=== PATIENT | female | born 1945 | race Caucasian/White ===

== ENCOUNTER 2017-10-29 11:19 | Emergency (ER) | payer OTHER ==
[~2017-10-29] VITALS: Ht 160 cm; Wt 83.9 kg
[2017-10-29] MEDS ORDERED: SODIUM CHLORIDE 0.9% 1000ML 1,000 ML IV STA (11:32)
[2017-10-29 11:48] LABS: BASOPHILS # (AUTO) 0.1 (0.0-0.1); BASOPHILS % 0.5 % (0.0-1.0); EOSINOPHILS # (AUTO) 1.1 (0.0-0.4); EOSINOPHILS % 8.8 % (0.0-6.0); HEMATOCRIT 39.3 % (34.2-44.1); HEMOGLOBIN 13.7 g/dL (12.0-16.0); LYMPHOCYTES % 23.9 % (18.0-39.1); MEAN CORPUSCULAR HEMOGLOBIN 29.1 pg (28-32); MEAN CORPUSCULAR HGB CONC 34.9 g/dL (31-35); MEAN CORPUSCULAR VOLUME 83.6 fL (81-99); MONOCYTES % 8.3 % (4.4-11.3); NEUTROPHILS # (AUTO) 7.3 (2.1-6.9); NEUTROPHILS % 57.9 % (38.7-80.0); PLATELET COUNT 268 x10e3/uL (140-360); RED CELL DISTRIBUTION WIDTH 13.1 % (11.7-14.4)
[2017-10-29 11:57] LABS: PARTIAL THROMBOPLASTIN TIME 25.8 seconds (23.8-35.5); PROTHROMBIN TIME 12.4 seconds (11.9-14.5)
[2017-10-29 12:02] LABS: CREATINE KINASE 54 IU/L (29-168)
[2017-10-29 12:04] LABS: ALBUMIN 3.6 g/dL (3.5-5.0); ANION GAP 12.8 mmol/L (8-16); CALCIUM 9.6 mg/dL (8.4-10.2); POTASSIUM 3.8 mmol/L (3.5-5.1)
--- NOTE | 2017-10-29 12:16 | Diagnostic Imaging Report ---
History:Dizziness, high blood pressure Comparison studies:None Technique: Axial images were obtained from the skull base to the vertex. Coronal and sagittal images reconstructed from the axial data. Intravenous contrast: None Findings: Scalp/skull: No abnormalities. Extra-axial spaces: No masses. No fluid collections. Brain sulci: Age-appropriate. Ventricles: Age-appropriate.. No hydrocephalus. Parenchyma: No abnormal densities. No masses, hemorrhage, acute or chronic cortical vascular insults. Sellar/suprasellar region: No abnormalities. Craniocervical junction: Patent foramen magnum. No Chiari one malformation. Incidental findings: Atherosclerotic calcifications in the carotid siphons . Impression: No acute abnormalities. Signed by: DR Leno Forbes M.D. on 10/29/2017 12:13 PM
--- NOTE | 2017-10-29 12:22 | Diagnostic Imaging Report ---
PROCEDURE: CHEST SINGLE (PORTABLE) COMPARISON: None. INDICATIONS: DIZZY FINDINGS: LUNGS: No consolidations or edema. PLEURA: There is slight elevation of the right hemidiaphragm of indeterminate significance. HEART \T\ MEDIASTINUM: The heart is within normal size-limits. BONES \T\ SOFT TISSUES: No acute findings. Multiple clips present in the left axilla. [place] device overlying the left humeral head. AC joint degenerative spurring. CONCLUSION: No acute thoracic abnormality. Devon Romero D.O. Dictated by: Devon Romero D.O. on 10/29/2017 at 12:23 Electronically approved by: Devon Romero D.O. on 10/29/2017 at 12:23
[2017-10-29 14:26] LABS: CLARITY,URINE CLEAR (CLEAR); COLOR,URINE YELLOW (YELLOW); LEUKOCYTE ESTERASE ,URINE TRACE (NEGATIVE); NITRITE,URINE NEGATIVE (NEGATIVE); PROTEIN,URINE DIPSTICK NEGATIVE (NEGATIVE)
[2017-10-29 14:27] LABS: BILIRUBIN,URINE NEGATIVE (NEGATIVE); KETONES,URINE NEGATIVE (NEGATIVE); URINE UROBILINOGEN 0.2 mg/dL (0.2 - 1)
[2017-10-29 14:40] LABS: EPITHELIAL CELLS,URINE FEW /LPF; MUCUS,URINE FEW (RARE)
== END 2017-10-29 15:25 | disposition home or self-care (01) ==
LOC: ER 11:19
DX: R53.83 Other fatigue (principal); I10 Essential (primary) hypertension; E11.9 Type 2 diabetes mellitus without complications; I49.3 Ventricular premature depolarization; Z85.3 Personal history of malignant neoplasm of breast
CPT/HCPCS: 36415; 70450; 71045; 80053; 81001; 82550; 82553; 83735; 84484; 85025; 85610; 85730; 87086; 93005; 99284; J7030

== ENCOUNTER 2019-12-08 06:46 | Inpatient (IN) | payer MEDICARE, OTHER ==
--- NOTE | 2019-12-05 16:55 | Diagnostic Imaging Report ---
EXAM: CHEST 2 VIEWS DATE: 12/05/2019 4:23 PM INDICATION: Colon cancer COMPARISON: None FINDINGS: The trachea is midline. The lungs are symmetrically expanded without evidence for large focal consolidation, pneumothorax, or significant pleural effusion. The cardiomediastinal silhouette and pulmonary vasculature are within normal limits. Mild atherosclerotic calcifications noted within the aortic arch. No acute osseous abnormality is identified. Multiple surgical clips noted projecting over the bilateral axilla. The surrounding soft tissues are unremarkable. IMPRESSION: No acute cardiopulmonary process identified. Signed by: Dr. Oscar Sousa MD on 12/05/2019 4:52 PM
[2019-12-05 17:04] LABS: BASOPHILS # (AUTO) 0.1 (0.0-0.1); BASOPHILS % 0.9 % (0.0-1.0); EOSINOPHILS # (AUTO) 0.1 (0.0-0.4); EOSINOPHILS % 1.7 % (0.0-6.0); HEMATOCRIT 33.3 % (34.2-44.1); HEMOGLOBIN 9.9 g/dL (12.0-16.0); LYMPHOCYTES # (AUTO) 1.7 (1.0-3.2); LYMPHOCYTES % 21.6 % (18.0-39.1); MEAN CORPUSCULAR HEMOGLOBIN 23.2 pg (28-32); MEAN CORPUSCULAR HGB CONC 29.7 g/dL (31-35); MONOCYTES # (AUTO) 0.5 (0.2-0.8); NEUTROPHILS # (AUTO) 5.6 (2.1-6.9); NEUTROPHILS % 69.7 % (38.7-80.0); PLATELET COUNT 241 x10e3/uL (140-360); RED BLOOD COUNT 4.27 x10e6/uL (3.6-5.1)
[2019-12-05 17:24] LABS: ALANINE AMINOTRANSFERASE 10 IU/L (0-55); ALBUMIN 3.5 g/dL (3.5-5.0); ALBUMIN/GLOBULIN RATIO 1.2 (0.8-2.0); ALKALINE PHOSPHATASE 63 IU/L (40-150); ANION GAP 14.1 mmol/L (8-16); BLOOD UREA NITROGEN 11 mg/dL (7-26); BUN/CREATININE RATIO 13 (6-25); CARBON DIOXIDE 24 mmol/L (22-29); CHLORIDE 105 mmol/L (98-107); CREATININE, SERUM 0.86 mg/dL (0.57-1.11); EST GLOMERULAR FILTRATION RATE > 60 ML/MIN (60-); GLUCOSE 122 mg/dL (74-118); POTASSIUM 4.1 mmol/L (3.5-5.1); SODIUM 139 mmol/L (136-145)
[~2019-12-08] VITALS: Ht 160 cm; Wt 79.8 kg
[~2019-12-08 06:46] MED LIST: ARIMIDEX1 MG PO; ATENOLOL50 MG PO; CRESTOR10 MG PO; JANUVIA100 MG PO; METFORMIN HCL500 M2 PO
[2019-12-08] MEDS ORDERED: CEFAZOLIN SOD 1 GM/NS 50ML 100 ML IV ONE (08:45)
[2019-12-08 08:53] LABS: CLARITY,URINE CLEAR (CLEAR); COLOR,URINE YELLOW (YELLOW); KETONES,URINE NEGATIVE (NEGATIVE); LEUKOCYTE ESTERASE ,URINE NEGATIVE (NEGATIVE); NITRITE,URINE NEGATIVE (NEGATIVE); PROTEIN,URINE DIPSTICK 1+ (NEGATIVE); URINE UROBILINOGEN 0.2 mg/dL (0.2 - 1)
[2019-12-08 08:54] LABS: BILIRUBIN,URINE SMALL (NEGATIVE)
[2019-12-08 09:28] LABS: BACTERIA,URINE MANY /HPF; EPITHELIAL CELLS,URINE MANY /LPF; RBC,URINE 0-5 /HPF (0-5); WBC,URINE (MAN) 21-50 /HPF (0-5)
[2019-12-08] MEDS ORDERED: BUPIVACAINE LIPOSOME/PF 266 MG/20 ML IJ ONE (10:05)
[2019-12-08] MEDS ORDERED: SODIUM CHLORIDE 0.9% 100 ML ONE (10:29)
[2019-12-08] MEDS ORDERED: SUGAMMADEX SODIUM 200 MG/2 ML VIAL IV ONE (11:39)
[2019-12-08] MEDS ORDERED: PANTOPRAZOLE 40 MG 10ML VIAL IV SCH (12:30)
[2019-12-08] MEDS ORDERED: HYDROMORPHONE 0.2MG/ML-SOD CHL 30ML PCA SYRINGE IV PRN (12:30)
[2019-12-08] MEDS ORDERED: NALOXONE HCL INJ 0.4 MG/ML AMP IV PRN ×2 (12:30→14:00)
[2019-12-08] MEDS ORDERED: SODIUM CHLORIDE 0.9% 250ML IRRIG IR SCH (12:30)
[2019-12-08] MEDS ORDERED: SODIUM CHLORIDE 0.9% 1000ML 1,000 ML IV SCH (12:30)
[2019-12-08] MEDS ORDERED: HYDROMORPHONE 1MG/1ML INJ ONE (12:38)
[2019-12-08] MEDS ORDERED: PROMETHAZINE HCL (IM) 25 MG/ML VIAL ONE (12:46)
--- NOTE | 2019-12-08 13:35 | Operative Report ---
DATE OF PROCEDURE: 12/08/2019 SURGEON: Jhony Cheema MD PREOPERATIVE DIAGNOSES: Obstructing transverse colon carcinoma, anemia, history of breast cancer, hypertension, and diabetes. POSTOPERATIVE DIAGNOSES: Obstructing transverse colon carcinoma, anemia, history of breast cancer, hypertension, and diabetes. PROCEDURES PERFORMED: Exploratory laparotomy, extended right hemicolectomy, right oophorectomy. ASSISTANTS: 1. Gustabo Cheema MD. 2. ROSELYN Paul. ESTIMATED BLOOD LOSS: Minimal. DRAINS: None. COMPLICATIONS: None. INDICATION AND FINDINGS: This is a pleasant 74-year-old female, who was diagnosed with colon cancer because of anemia. Colonoscopy revealed a lesion in the area of the transverse colon that was tattooed. Preoperatively, CT scan revealed no lesions. The COVID test was negative. INTRAOPERATIVE FINDINGS: A large bulky lesion about 6 cm located in the proximal transverse colon, past the distal to the hepatic flexure. I am almost what appeared to be pocketing of the serosa of the colonic wall. There was no evidence of liver mets and there was some nodes that appeared to be reactive from the previous tattooing. There was a 2 cm right ovarian mass and felt different and firmer than the atrophic right ovary and that was excised. A stapled [id number] functional end-to-end to an anastomosis was then performed. DESCRIPTION OF PROCEDURE: With the patient lying on the operative table in the supine position, after administration of general anesthesia, she was given prophylactic antibiotics. The patient was placed in the candy-cane and a rigid procto was performed up to 25 cm. There was no good bowel prep. There was some fluid stool that was removed. After we did that, she was prepped and draped for exploratory laparotomy. The abdomen was entered via midline incision. This patient had a previous trans flap with mesh placement, and we entered the abdominal cavity via transection of the mesh that was the abdominal wall. After we entered the abdominal cavity. The findings noted above. We began by mobilizing the right colon along the gutter white line of Toldt. We transected the small bowel about 6 inches for the terminal ileum, then continued the mobilization of the colon from the white line of Toldt, the hepatic flexure down to the distal part of the transverse colon. We then mobilized the hepatic flexure, detached the omentum from the stomach and later attached to the colon and then selected the point of transection of the distal transverse colon to the left of the midline. We went ahead and then transected the colon with the WU stapler there also, as had been done with the small bowel. Then, we took down the blood supply to the colon with an EnSeal instrument and the larger vessels were tied off doubly with 0 silk, after we detached the specimen there, we went ahead and included some small nodes that I think were reactive, and then we went ahead and performed her right oophorectomy. We tied off the pedicle with 0 silk and the was transected with the EnSeal instrument and sent to Pathology for evaluation. A xtat-os-jqau anastomosis was then performed between the distal small bowel and the transverse colon, firing the WU #75 stapler to anastomose those two segments proximally and distally. Small bowel to the distal transverse colon and we examined the staple line. There was no bleeding. Then, we closed the rent between the distal end of the colon and small bowel with the TA-60 stapler. We reinforced the staple line with 3-0 silk. We closed the rent in the mesentery with 3-0 Vicryl. Sponge and instrument counts were pronounced correct three times and then we copiously irrigated the abdominal cavity. It was tender, there was no bleeding. No evidence of any bowel injury which we then find any and then we closed the wound after we suctioned all the fluid out in two layers. We used a running 0 PDS to close the fascia in the midline, which basically consisted of the mesh with ingrown tissue. We gave her then a local block and field block with 20 mL of Exparel mixed with 20 mL of saline, a total of 40. The subcu tissues were approximated using 2-0 plain catgut and the skin was closed using a combination of cindy and silk. Sterile dressing was applied. The patient tolerated the procedure well, and was taken to recovery room stable condition. MD JACKIE Pelayo/FABIO /[id number]
[2019-12-08] MEDS: SODIUM CHLORIDE 0.9% IRRIG 3,000 ML BAG IR SCH ×4 (14:00→23:46)
[2019-12-08] MEDS ORDERED: HYDROMORPHONE 0.2MG/ML-SOD CHL 30ML PCA SYRINGE IV ONE (14:39)
[2019-12-08] MEDS: HYDROMORPHONE 0.2MG/ML-SOD CHL 30ML PCA SYRINGE IV PRN (14:41)
[2019-12-08 15:35] VITALS: BP 133/50
[2019-12-08 15:45] VITALS: BP 133/50
[2019-12-08 15:57] VITALS: BP 133/50
[2019-12-08] MEDS: PANTOPRAZOLE 40 MG 10ML VIAL IV SCH (16:23)
[2019-12-08] MEDS: SODIUM CHLORIDE 0.9% 1000ML 1,000 ML IV SCH ×2 (16:23→23:46)
[2019-12-08] MEDS: METOPROLOL TARTRATE INJ 1 MG/ML VIAL IV SCH (16:23)
[2019-12-08] MEDS: CEFAZOLIN SOD 1 GM/NS 50ML 50 ML IV SCH ×2 (16:23→22:04)
[2019-12-08] MEDS ORDERED: ATENOLOL 50 MG TAB PO SCH (17:00)
[2019-12-08] MEDS ORDERED: CEFAZOLIN SOD 1 GM/NS 50ML 50 ML IV SCH (18:00)
[2019-12-08] MEDS ORDERED: CEFAZOLIN SOD 1 GM VIAL IV SCH (18:00)
[2019-12-08 20:00] VITALS: BP 167/65
[2019-12-08] MEDS ORDERED: FENTANYL CITRATE/PF 100MCG/2 ML INJ ONE (20:19)
[2019-12-08 21:10] VITALS: BP 167/65
[2019-12-08] MEDS ORDERED: DEXAMETHASONE SOD PHOS INJ 4 MG/ML VIAL ONE (21:20)
[2019-12-08] MEDS ORDERED: EPHEDRINE SULFATE INJ 50 MG/ML VIAL ONE (21:20)
[2019-12-08] MEDS ORDERED: ACETAMINOPHEN 1000 MG/100 ML IV ONE (21:20)
[2019-12-08] MEDS ORDERED: LIDOCAINE HCL 2% LOCAL INJ 5 ML SDV VIAL INJ ONE (21:20)
[2019-12-08] MEDS ORDERED: HYDRALAZINE HCL 20 MG/ML VIAL ONE (21:20)
[2019-12-08] MEDS ORDERED: PHENYLEPHRINE HCL 1% 10 MG/ML VIAL ONE (21:20)
[2019-12-08] MEDS ORDERED: ROCURONIUM BROMIDE 10 MG/ML 5ML VIAL IV ONE (21:20)
[2019-12-08] MEDS ORDERED: SEVOFLURANE INHAL SOLN 250 ML PEN BTL ONE (21:20)
[2019-12-08] MEDS ORDERED: ONDANSETRON HCL INJ 2MG/ML 2ML 2 MG/ML VIAL ONE (21:20)
[2019-12-08] MEDS ORDERED: ETOMIDATE 2 MG/ML 10 ML INJ IV ONE (21:20)
[2019-12-09] VITALS (7 sets, daily range): BP systolic 137–168; BP diastolic 51–67
[2019-12-09] MEDS: CEFAZOLIN SOD 1 GM/NS 50ML 50 ML IV SCH ×4 (04:49→22:32)
[2019-12-09 05:47] LABS: ANION GAP 14.1 mmol/L (8-16); CALCIUM 7.9 mg/dL (8.4-10.2); CREATININE, SERUM 0.96 mg/dL (0.57-1.11); POTASSIUM 4.1 mmol/L (3.5-5.1)
[2019-12-09] MEDS: SODIUM CHLORIDE 0.9% IRRIG 3,000 ML BAG IR SCH ×5 (06:07→22:32)
[2019-12-09 08:18] LABS: BASOPHILS % 0.2 % (0.0-1.0); EOSINOPHILS # (AUTO) 0.1 (0.0-0.4); EOSINOPHILS % 0.7 % (0.0-6.0); HEMOGLOBIN 8.8 g/dL (12.0-16.0); LYMPHOCYTES # (AUTO) 0.7 (1.0-3.2); LYMPHOCYTES % 3.5 % (18.0-39.1); MEAN CORPUSCULAR HEMOGLOBIN 23.9 pg (28-32); MEAN CORPUSCULAR HGB CONC 30.3 g/dL (31-35); MEAN CORPUSCULAR VOLUME 78.8 fL (81-99); MONOCYTES # (AUTO) 1.1 (0.2-0.8); MONOCYTES % 5.3 % (4.4-11.3); NEUTROPHILS # (AUTO) 18.2 (2.1-6.9); NEUTROPHILS % 89.6 % (38.7-80.0); PLATELET COUNT 240 x10e3/uL (140-360); RED BLOOD COUNT 3.68 x10e6/uL (3.6-5.1)
[2019-12-09] MEDS: SODIUM CHLORIDE 0.9% 1000ML 1,000 ML IV SCH ×2 (08:39→16:52)
[2019-12-09] MEDS: METOPROLOL TARTRATE INJ 1 MG/ML VIAL IV SCH (08:42)
[2019-12-09] MEDS: PANTOPRAZOLE 40 MG 10ML VIAL IV SCH (08:43)
[2019-12-09 08:54] LABS: ANISOCYTOSIS MODERATE; OVALOCYTES FEW
[2019-12-09 08:55] LABS: HYPOCHROMASIA MODERATE
[2019-12-09 08:56] LABS: MICROCYTOSIS MODERATE; POLYCHROMASIA FEW; RBC MORPHOLOGY COMMENT ABNORMAL
[2019-12-09 08:57] LABS: PLATELET ESTIMATE ADEQUATE
[2019-12-09 08:58] LABS: PLATELET MORPHOLOGY COMMENT FEW LARGE
[2019-12-09] MEDS ORDERED: METOPROLOL TARTRATE INJ 1 MG/ML VIAL IV SCH (09:00)
[2019-12-09] MEDS ORDERED: LIDOCAINE 1% W/EPINEPHRINE 20 ML VIAL ONE (10:29)
--- NOTE | 2019-12-09 12:19 | Operative Report ---
DATE OF PROCEDURE: 12/09/2019 SURGEON: Jhony Cheema MD PREOPERATIVE DIAGNOSIS: Need central angioaccess. POSTOPERATIVE DIAGNOSIS: Need central angioaccess. PROCEDURE PERFORMED: Insertion of left subclavian central line triple lumen. ANESTHESIA: Local 1% Xylocaine with epinephrine. ESTIMATED BLOOD LOSS: Less than 5 mL. DRAINS: None. COMPLICATIONS: None. INDICATION AND FINDINGS: The patient is a 74-year-old female, status post bilateral modified radical mastectomy for breast cancer, who underwent yesterday exploratory laparotomy, extended right hemicolectomy for an obstructing colon carcinoma, who now needs central angioaccess because of poor peripheral IV access and the fact that she is status post bilateral mastectomy and will be required intravenous fluids for several days. DESCRIPTION OF PROCEDURE: With the patient lying on the operative table in the supine position after administration of local with 1% Xylocaine with epinephrine and a self-administration of Dilaudid COMPUTER GAME DESIGNER, she was prepped and draped for placement of central line via the left subclavian region. The left subclavian vein was percutaneously punctured, obtaining good blood flow return. The guidewire was then introduced, the tract dilated, and then the dilator removed. Then, the central line triple lumen was threaded into the right side of the chest using the Seldinger technique. There was good blood flow return. The line was then secured with three stitches to the pectoral skin and sterile dressing was applied. The patient tolerated the procedure well and was taken to recovery room in stable condition. MD JACKIE Pelayo/MODL /[id number]
--- NOTE | 2019-12-09 13:26 | Diagnostic Imaging Report ---
EXAMINATION: CHEST SINGLE (PORTABLE) INDICATION: Line placement COMPARISON: Chest radiograph 12/05/2019 FINDINGS: LINES/TUBES:Interval placement of left subclavian central venous catheter terminating at the superior cavoatrial junction. Enteric tube terminates in the stomach. LUNGS:The lungs are moderately inflated. Mild bibasilar subsegmental atelectasis. No focal consolidation or pulmonary edema PLEURA:No pleural effusion or pneumothorax. MEDIASTINUM:The cardiomediastinal silhouette appears normal in size and shape. BONES/SOFT TISSUES:No acute osseous injury. Surgical clips in both axilla. ABDOMEN:No free air under the diaphragm. Status post cholecystectomy. IMPRESSION: Left subclavian central venous catheter terminates at the superior cavoatrial junction. Signed by: Roberto Boo MD on 12/09/2019 1:22 PM
[2019-12-09] MEDS: INSULIN REGULAR, HUMAN 100 UNIT/1 ML 3ML VIAL SQ SCH ×2 (13:37→17:43)
--- NOTE | 2019-12-09 14:03 | NUR ---
received report from [facility] nurse, Netta. Pt being transferred from room 198 to room 106.
--- NOTE | 2019-12-09 14:21 | NUR ---
Dr Ramila Martell has been in with patient. He has placed a left subclavian central line with no complications noted. Peripheral iv has been removed with cannula intact, pressure held, bandaged, and no bleeding noted. Have notified Dr Randal Cheema that the urine output is 20- 25 cc/hr and the BP is elevated 160 systolic. He has ordered to continue the IVF and resume pt's home med atenolol. No other orders at this time.
--- NOTE | 2019-12-09 14:34 | NUR ---
pt arrived to room 106. [address], NG tube to right nare intact, IV patent. no signs of distress.
[2019-12-09] MEDS: ATENOLOL 50 MG TAB PO SCH (16:40)
[2019-12-09] MEDS: HYDROMORPHONE 0.2MG/ML-SOD CHL 30ML PCA SYRINGE IV PRN (20:43)
[2019-12-10] VITALS (8 sets, daily range): BP systolic 160–183; BP diastolic 52–68
[2019-12-10] MEDS: INSULIN REGULAR, HUMAN 100 UNIT/1 ML 3ML VIAL SQ SCH ×4 (01:14→18:00)
[2019-12-10] MEDS: SODIUM CHLORIDE 0.9% 1000ML 1,000 ML IV SCH ×3 (01:14→18:00)
[2019-12-10] MEDS: SODIUM CHLORIDE 0.9% IRRIG 3,000 ML BAG IR SCH ×6 (01:48→22:00)
[2019-12-10] MEDS: CEFAZOLIN SOD 1 GM/NS 50ML 50 ML IV SCH ×4 (03:43→22:08)
--- NOTE | 2019-12-10 04:50 | NUR ---
LONGORIA CARE PROVIDED VIA CASTILE SOAP WIPES. CENTRAL LINE CARE PROVIDED. DAILY CHG BATH GIVEN. EDUCATION REGARDING CENTRAL LINE CARE PROVIDED. TOLERATED PROCEDURES WELL.
[2019-12-10 05:34] LABS: BASOPHILS % 0.1 % (0.0-1.0); HEMATOCRIT 24.9 % (34.2-44.1); HEMOGLOBIN 7.3 g/dL (12.0-16.0); MEAN CORPUSCULAR HEMOGLOBIN 23.7 pg (28-32); MEAN CORPUSCULAR HGB CONC 29.3 g/dL (31-35); MEAN CORPUSCULAR VOLUME 80.8 fL (81-99); MONOCYTES # (AUTO) 0.9 (0.2-0.8); MONOCYTES % 6.2 % (4.4-11.3); NEUTROPHILS # (AUTO) 12.1 (2.1-6.9); NEUTROPHILS % 85.9 % (38.7-80.0); PLATELET COUNT 201 x10e3/uL (140-360); RED BLOOD COUNT 3.08 x10e6/uL (3.6-5.1)
[2019-12-10 06:02] LABS: ANION GAP 6.9 mmol/L (8-16); BLOOD UREA NITROGEN 18 mg/dL (7-26); BUN/CREATININE RATIO 24 (6-25); CALCIUM 7.8 mg/dL (8.4-10.2); CARBON DIOXIDE 26 mmol/L (22-29); CHLORIDE 113 mmol/L (98-107); CREATININE, SERUM 0.74 mg/dL (0.57-1.11); EST GLOMERULAR FILTRATION RATE > 60 ML/MIN (60-); GLUCOSE 143 mg/dL (74-118); POTASSIUM 3.9 mmol/L (3.5-5.1); SODIUM 142 mmol/L (136-145)
--- NOTE | 2019-12-10 07:00 | NUR ---
BEDSIDE SHIFT REPORT RECEIVED PT IN STABLE CONDITION, DENIES PAIN AT THIS TIME, DSG TO ABDOMEN C/D/I, LONGORIA TO BSD WITH YELLOW URINE NOTED, UPDATED ON POC VOICED UNDERSTANDING, CALL LIGHT IN REACH WILL CONTINUE TO MONITOR
--- NOTE | 2019-12-10 07:24 | NUR ---
REPORT GIVEN TO [facility] NURSE. RESTING IN BED. AAOX3. NO SIGNS OF IV INFILTRATION. BED LOCKED AND IN LOW POSITION. CALL LIGHT WITHIN REACH. ENTRY LEVEL LAB TECHNICIAN BUTTON WITHIN REACH.
[2019-12-10 08:11] LABS: RBC MORPHOLOGY COMMENT ABNORMAL
[2019-12-10 08:12] LABS: ANISOCYTOSIS MODERATE; HYPOCHROMASIA MODERATE; OVALOCYTES FEW
[2019-12-10 08:13] LABS: MICROCYTOSIS MODERATE; PLATELET ESTIMATE ADEQUATE; PLATELET MORPHOLOGY COMMENT FEW LARGE
[2019-12-10] MEDS: ATENOLOL 50 MG TAB PO SCH ×2 (09:46→16:42)
[2019-12-10] MEDS: PANTOPRAZOLE 40 MG 10ML VIAL IV SCH (09:53)
--- NOTE | 2019-12-10 13:10 | NUR ---
UP TO CHAIR WITH ASSISTANCE, PT TOLERATED WELL, CALL LIGHT IN REACH WILL CONTINUE TO MONITOR
--- NOTE | 2019-12-10 14:07 | NUR ---
BACK TO BED WITH ASSISTANCE, PT TOLERATED WELL, NG CONNECTED TO LWS, IVF INFUSING TO L CENTRAL LINE, CALL LIGHT IN REACH, SCDS IN PLACE WILL CONTINUE TO MONITOR
[2019-12-10] MEDS: BISACODYL 10 MG SUPP PR SCH (22:00)
[2019-12-11] VITALS (8 sets, daily range): BP systolic 157–176; BP diastolic 57–74
[2019-12-11] MEDS: SODIUM CHLORIDE 0.9% IRRIG 3,000 ML BAG IR SCH ×3 (02:00→08:56)
[2019-12-11] MEDS: SODIUM CHLORIDE 0.9% 1000ML 1,000 ML IV SCH ×4 (03:53→23:17)
[2019-12-11] MEDS: CEFAZOLIN SOD 1 GM/NS 50ML 50 ML IV SCH ×4 (04:00→22:00)
[2019-12-11] MEDS: INSULIN REGULAR, HUMAN 100 UNIT/1 ML 3ML VIAL SQ SCH ×5 (06:00→23:17)
[2019-12-11 06:44] LABS: BASOPHILS # (AUTO) 0.1 (0.0-0.1); BASOPHILS % 0.5 % (0.0-1.0); EOSINOPHILS # (AUTO) 0.2 (0.0-0.4); EOSINOPHILS % 1.8 % (0.0-6.0); HEMATOCRIT 24.1 % (34.2-44.1); HEMOGLOBIN 7.3 g/dL (12.0-16.0); LYMPHOCYTES # (AUTO) 1.6 (1.0-3.2); LYMPHOCYTES % 14.7 % (18.0-39.1); MEAN CORPUSCULAR HEMOGLOBIN 24.2 pg (28-32); MEAN CORPUSCULAR HGB CONC 30.3 g/dL (31-35); MEAN CORPUSCULAR VOLUME 79.8 fL (81-99); MONOCYTES # (AUTO) 0.7 (0.2-0.8); MONOCYTES % 6.4 % (4.4-11.3); NEUTROPHILS # (AUTO) 8.2 (2.1-6.9); NEUTROPHILS % 75.9 % (38.7-80.0); PLATELET COUNT 194 x10e3/uL (140-360); RED BLOOD COUNT 3.02 x10e6/uL (3.6-5.1); RED CELL DISTRIBUTION WIDTH 27.2 % (11.7-14.4)
[2019-12-11 07:01] LABS: BLOOD UREA NITROGEN 11 mg/dL (7-26); BUN/CREATININE RATIO 18 (6-25); CALCIUM 7.7 mg/dL (8.4-10.2); CARBON DIOXIDE 24 mmol/L (22-29); CHLORIDE 106 mmol/L (98-107); EST GLOMERULAR FILTRATION RATE > 60 ML/MIN (60-); GLUCOSE 109 mg/dL (74-118); SODIUM 137 mmol/L (136-145)
--- NOTE | 2019-12-11 07:44 | NUR ---
CALLED DR. DANNIELLE Mcgrath ANSWERING SERVICE FOR POTASSIUM OF 3.0, SPOKE TO AREA FORESTER.
[2019-12-11] MEDS ORDERED: [UNRECOGNIZED DRUG - OTHER] IV ONE (07:47)
[2019-12-11] MEDS ORDERED: POTASSIUM CHLORIDE IV ONE (07:47)
[2019-12-11] MEDS: ATENOLOL 50 MG TAB PO SCH ×2 (08:55→16:09)
[2019-12-11] MEDS: PANTOPRAZOLE 40 MG 10ML VIAL IV SCH (08:55)
[2019-12-11] MEDS: BISACODYL 10 MG SUPP PR SCH (08:59)
[2019-12-11] MEDS ORDERED: POTASSIUM CHLORIDE 20MEQ/100ML 100 ML IV ONE (09:50)
[2019-12-11] MEDS ORDERED: HYDROCODONE/APAP 7.5MG-325MG 1 EA TAB PO PRN (13:30)
--- NOTE | 2019-12-11 13:35 | NUR ---
PATIENT'S LONGORIA CATHETER REMOVED PER PHYSICIAN'S ORDER.
--- NOTE | 2019-12-11 15:30 | NUR ---
PATIENT VOIDED 200 ML OF LIGHT YELLOW URINE.
[2019-12-11] MEDS: HYDROMORPHONE 1MG/1ML INJ IV PRN ×2 (15:50→23:00)
--- NOTE | 2019-12-11 19:19 | NUR ---
BEDSIDE SHIFT REPORT GIVEN TO SUKUMAR Cruz RN.
--- NOTE | 2019-12-11 22:30 | NUR ---
watkins catheter inserted using sterile technique per MD order. 235ml of cloudy yellow urine noted in watkins bag.
[2019-12-12] VITALS (7 sets, daily range): BP systolic 147–190; BP diastolic 62–78
[2019-12-12] MEDS: HYDROMORPHONE 1MG/1ML INJ IV PRN ×4 (03:02→20:24)
[2019-12-12] MEDS: CEFAZOLIN SOD 1 GM/NS 50ML 50 ML IV SCH ×4 (04:05→22:00)
[2019-12-12] MEDS: INSULIN REGULAR, HUMAN 100 UNIT/1 ML 3ML VIAL SQ SCH ×3 (06:00→17:37)
[2019-12-12] MEDS: SODIUM CHLORIDE 0.9% 1000ML 1,000 ML IV SCH (07:00)
--- NOTE | 2019-12-12 07:00 | NUR ---
RECEIVED PATIENT AWAKE RESTING IN BED NO S/S OF DISTRESS. BED LOW, WHEELS LOCKED, SIDE RAILS X2. CALL LIGHT IN REACH WILL CONTINUE TO MONITOR PATIENT.
[2019-12-12] MEDS ORDERED: POTASSIUM CHLORIDE 20MEQ/100ML 100 ML IV ONE (07:47)
[2019-12-12] MEDS: ATENOLOL 50 MG TAB PO SCH ×2 (08:19→17:21)
[2019-12-12] MEDS: PANTOPRAZOLE 40 MG 10ML VIAL IV SCH (08:19)
[2019-12-12] MEDS ORDERED: KETOROLAC TROMETHAMINE 30 MG/ML VIAL IV PRN (09:45)
--- NOTE | 2019-12-12 09:55 | NUR ---
Pt. expressed no spiritual or emotional concerns at this time. Wastewater Analyst Lab Analyst provided hospitality and information on how to reach hall director, if needed. No need to follow. MARIA E RODRIGUEZ Wastewater Analyst Lab Analyst Spiritual Care Department O: [phone]
[2019-12-12 10:26] LABS: BASOPHILS % 0.5 % (0.0-1.0); EOSINOPHILS # (AUTO) 0.2 (0.0-0.4); EOSINOPHILS % 2.3 % (0.0-6.0); HEMATOCRIT 26.3 % (34.2-44.1); HEMOGLOBIN 8.1 g/dL (12.0-16.0); LYMPHOCYTES # (AUTO) 1.2 (1.0-3.2); LYMPHOCYTES % 13.5 % (18.0-39.1); MEAN CORPUSCULAR HGB CONC 30.8 g/dL (31-35); MONOCYTES # (AUTO) 0.6 (0.2-0.8); MONOCYTES % 6.4 % (4.4-11.3); NEUTROPHILS # (AUTO) 6.6 (2.1-6.9); PLATELET COUNT 217 x10e3/uL (140-360); RED BLOOD COUNT 3.37 x10e6/uL (3.6-5.1); RED CELL DISTRIBUTION WIDTH 26.4 % (11.7-14.4)
[2019-12-12 10:55] LABS: ANION GAP 16.1 mmol/L (8-16); BLOOD UREA NITROGEN 5 mg/dL (7-26); BUN/CREATININE RATIO 8 (6-25); CARBON DIOXIDE 22 mmol/L (22-29); CHLORIDE 103 mmol/L (98-107); CREATININE, SERUM 0.64 mg/dL (0.57-1.11); EST GLOMERULAR FILTRATION RATE > 60 ML/MIN (60-); GLUCOSE 125 mg/dL (74-118); POTASSIUM 3.1 mmol/L (3.5-5.1); SODIUM 138 mmol/L (136-145)
[2019-12-12] MEDS: DOCUSATE SODIUM 100 MG CAP PO SCH ×2 (12:21→17:21)
[2019-12-12] MEDS ORDERED: POTASSIUM CHLORIDE 20 MEQ TAB CR PO SCH (12:30)
[2019-12-12] MEDS ORDERED: POTASSIUM CHLORIDE 20 MEQ TAB CR PO ONE ×2 (14:30→16:40)
--- NOTE | 2019-12-12 14:47 | Progress Note ---
DATE: SUBJECTIVE: The patient complains of incisional pain. Otherwise, she is doing fine, passing gas, tolerating clear fluids well. OBJECTIVE: VITAL SIGNS: She is afebrile. Vital signs are stable. ABDOMEN: Soft. Bowel sounds are present. The dressing is dry. LABORATORY DATA: Reveals a potassium of 3.8 with normal electrolytes. Blood sugar is 125. CBC shows a white count of 8.58, hematocrit 31, and platelets 217. ASSESSMENT: The patient is surgically stable. PLAN: To continue current care. Increase diet to full liquid and advance diet to regular, and hopefully discharged by Thursday. MD JACKIE Pelayo/FABIO /[id number]
[2019-12-13] MEDS: HYDROMORPHONE 1MG/1ML INJ IV PRN ×4 (01:16→22:20)
[2019-12-13] MEDS: SODIUM CHLORIDE 0.9% 1000ML 1,000 ML IV SCH ×2 (02:44→18:35)
[2019-12-13 04:30] VITALS: BP 154/52
[2019-12-13] MEDS: CEFAZOLIN SOD 1 GM/NS 50ML 50 ML IV SCH ×4 (05:17→22:05)
[2019-12-13] MEDS: INSULIN REGULAR, HUMAN 100 UNIT/1 ML 3ML VIAL SQ SCH ×4 (06:00→17:15)
[2019-12-13 06:24] LABS: ANION GAP 15.6 mmol/L (8-16); BLOOD UREA NITROGEN < 5 mg/dL (7-26); CALCIUM 7.8 mg/dL (8.4-10.2); CARBON DIOXIDE 20 mmol/L (22-29); CHLORIDE 108 mmol/L (98-107); EST GLOMERULAR FILTRATION RATE > 60 ML/MIN (60-); GLUCOSE 104 mg/dL (74-118); POTASSIUM 3.6 mmol/L (3.5-5.1); SODIUM 140 mmol/L (136-145)
[2019-12-13 06:27] LABS: BUN/CREATININE RATIO 8 (6-25)
--- NOTE | 2019-12-13 07:00 | NUR ---
RECEIVED PATIENT AWAKE RESTING IN BED NO S/S OF DISTRESS. BED LOW, WHEELS LOCKED, SIDE RAILS X2. CALL LIGHT IN REACH WILL CONTINUE TO MONITOR PATIENT.
[2019-12-13 08:00] VITALS: BP 166/57
[2019-12-13] MEDS: PANTOPRAZOLE 40 MG 10ML VIAL IV SCH (08:25)
[2019-12-13] MEDS: DOCUSATE SODIUM 100 MG CAP PO SCH ×2 (08:25→16:30)
[2019-12-13] MEDS: ATENOLOL 50 MG TAB PO SCH ×2 (08:26→16:30)
[2019-12-13 08:31] VITALS: BP 166/57
[2019-12-13 12:00] VITALS: BP 173/70
[2019-12-13 16:00] VITALS: BP 183/61
[2019-12-13 20:00] VITALS: BP 155/82
[2019-12-14] VITALS: BP 151/51
[2019-12-14] MEDS: CEFAZOLIN SOD 1 GM/NS 50ML 50 ML IV SCH (03:58)
[2019-12-14 04:00] VITALS: BP 179/53
[2019-12-14] MEDS: HYDROMORPHONE 1MG/1ML INJ IV PRN (04:25)
--- NOTE | 2019-12-14 04:25 | NUR ---
CENTRAL LINE CARE PROVIDED. DAILY CHG BATH GIVEN. TOLERATED WELL.
[2019-12-14] MEDS: INSULIN REGULAR, HUMAN 100 UNIT/1 ML 3ML VIAL SQ SCH ×2 (04:59)
--- NOTE | 2019-12-14 07:03 | NUR ---
REPORT GIVEN TO [facility] NURSE. AAOX3. RESTING IN BED. NO SIGNS OF IV INFILTRATION. BED LOCKED AND IN LOW POSITION. CALL LIGHT WITHIN REACH.
--- NOTE | 2019-12-14 07:30 | NUR ---
PT UP IN BED AWAKE DENIES PAIN,NO DISTRESS NOTED,PAIN LEVEL TWO ,LAURITAG CD&I
[2019-12-14 08:00] VITALS: BP 167/48
[2019-12-14 08:15] VITALS: BP 167/48
[2019-12-14] MEDS: DOCUSATE SODIUM 100 MG CAP PO SCH (08:16)
[2019-12-14] MEDS: PANTOPRAZOLE 40 MG 10ML VIAL IV SCH (08:16)
[2019-12-14] MEDS: ATENOLOL 50 MG TAB PO SCH (08:17)
[2019-12-14 11:39] VITALS: BP 162/53
[2019-12-14] MEDS ORDERED: ULTRAM 50MG50 MG PO (11:44)
--- NOTE | 2019-12-14 11:45 | NUR ---
DR KATZ HERE REMOVE DRSG BOB AND STITCHES INTACT.
--- NOTE | 2019-12-14 18:03 | Discharge Summary ---
DISCHARGE DIAGNOSES: 1. Carcinoma of the transverse colon. 2. Diabetes. 3. Hypertension. 4. Obesity. PROCEDURES PERFORMED: On 12/08/2019, exploratory laparotomy, transverse colon resection, and right oophorectomy. HISTORY OF PRESENT ILLNESS AND HOSPITALIZATION COURSE: The patient is a very pleasant 74-year-old female who was recently diagnosed with a colon cancer by colonoscopy because of anemia. She preoperatively had a CT scan that revealed no liver lesions. Physical examination reveals a soft abdomen. Past medical history significant for what has already been described. Hospitalization course: Following admission, the patient underwent the previously described procedure. Postoperatively, she did well. She was discharged home on 12/14/2019 in stable condition, tolerating a regular diet well. She was told she had moved her bowels. She was given wound instructions and activity instructions. She will be followed with the office in a week following discharge. Telephone conversation with Dr. 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 MD JACKIE Pelayo/KWESIL /[id number]
== END 2019-12-14 12:35 | disposition home or self-care (01) | DRG 331 ==
LOC: OR 06:46 → PACU V 14:00 → IMCU 15:22 → MED/SURG 12-09 14:36
PROVIDERS: ADMIT Surgery; ATTEND Surgery
PROC: 0UT00ZZ Resection of Right Ovary, Open Approach (ICD-10-PCS; 2019-12-08)
PROC: 0DTF0ZZ Resection of Right Large Intestine, Open Approach (ICD-10-PCS; principal; 2019-12-08 09:00)
PROC: 02HV33Z Insertion of Infusion Device into Superior Vena Cava, Percutaneous Approach (ICD-10-PCS; 2019-12-09)
DX: C18.4 Malignant neoplasm of transverse colon (principal); E11.9 Type 2 diabetes mellitus without complications; I10 Essential (primary) hypertension; E66.9 Obesity, unspecified; Z68.31 Body mass index [BMI] 31.0-31.9, adult; Z11.59 Encounter for screening for other viral diseases
CPT/HCPCS: 36415; 71045; 71046; 80048; 80053; 81001; 82948; 85025; 86850; 86900; 86920; 87635; 88304; 88305; 88309; 88342; 93005; J0360; J0690; J1100; J1170; J1817; J2001; J2370; J2405; J2550; J3010; J3480; J7030; J7050